=== PATIENT | male | born 1950 | race African-American/Black ===

== ENCOUNTER → 2024-05-17 16:06 | Outpatient (REF) | payer OTHER, SELFPAY | LOC: MRI 3T 16:06 | PROVIDERS: ATTENDING PHYSICIAN Specialist | DX: R97.20 Elevated prostate specific antigen [PSA] (principal) | CPT/HCPCS: 72197; A9575 ==

== ENCOUNTER → 2024-06-15 11:03 | Outpatient (REF) | payer OTHER, SELFPAY | LOC: HWRAD 11:03 | PROVIDERS: ATTENDING PHYSICIAN Specialist | DX: R31.0 Gross hematuria (principal) | CPT/HCPCS: 74176 ==

== ENCOUNTER → 2024-06-17 12:54 | Outpatient (REF) | payer OTHER, SELFPAY | LOC: HWRCS 12:54 | PROVIDERS: ATTENDING PHYSICIAN Internal Medicine Cardiovascular Disease | DX: I10 Essential (primary) hypertension (principal) | CPT/HCPCS: 93306 ==

== ENCOUNTER 2024-07-21 06:00 | Day surgery (SDC) | payer OTHER, SELFPAY ==
[2024-07-20 08:58] LABS: Hematocrit 39.7 % (39.0-52.0); Hemoglobin 13.4 g/dL (13.0-18.0); Mean Corp Hgb Conc. 33.8 g/dL (33.0-37.0); Mean Corpuscular Hgb 29.9 pg (27.0-31.0); Mean Corpuscular Volume 88.6 fL (80.0-94.0); Mean Platelet Volume 8.8 fL (7.4-10.4); Platelet Count 227 10^3/uL (130-400); Red Blood Cell Count 4.48 10^6/uL (4.70-6.10); Red Cell Dist. Width 13.2 % (11.5-14.5); White Blood Cell Count 3.5 10^3/uL (4.8-10.8)
[2024-07-20 09:39] LABS: Blood Urea Nitrogen 17 mg/dl (9-20); Carbon Dioxide 32 mmol/L (22-30); Chloride 103 mmol/L (98-107); Glucose 85 mg/dl (70-99); Potassium 4.3 mmol/L (3.5-5.1); Sodium 140 mmol/L (135-145); eGFR > 60.00
[2024-07-20 14:08] VITALS: BMI 24.7
[2024-07-21] VITALS (10 sets, daily range): BP systolic 136–155; BP diastolic 52–102; BMI 24.7
[2024-07-21] MEDS: NORMOSOL-R/PLASMALYTE-A 1000 IV (06:39)
[2024-07-21] MEDS: DILAUDID 0.5 MG IV (10:10)
--- NOTE | 2024-07-21 12:00 | PTCARENOTE ---
report received from pacu. aaox3. vss. [facility]bi infusing. output blood tinged. dtr at bedside. call montoya in reach. will monitor.
[2024-07-21] MEDS: MORPHINE SULFATE 4 MG IV (15:15)
[2024-07-21] MEDS: COLACE 100 MG PO (16:48)
[2024-07-21] MEDS: TORADOL 15 MG IV ×2 (17:58→23:31)
[2024-07-21] MEDS: NORVASC 5 MG PO (21:31)
[2024-07-21] MEDS: POLYSPORIN/DOUBLE ANTIBIOTIC 1 APPLIC TOPICAL (21:31)
[2024-07-21] MEDS: FLOMAX 0.4 MG PO (21:31)
[2024-07-22 03:00] VITALS: BP 138/87
[2024-07-22] MEDS: TORADOL 15 MG IV ×3 (05:40→16:27)
[2024-07-22] MEDS: COLACE 100 MG PO ×3 (06:09→16:27)
[2024-07-22 07:45] VITALS: BP 119/77
[2024-07-22] MEDS: POLYSPORIN/DOUBLE ANTIBIOTIC 1 APPLIC TOPICAL (07:51)
--- NOTE | 2024-07-22 09:47 | CM ---
Reviewed the chart notes and spoke with the patient at the bedside. CM consult received for VN. Discussed VN agencies in the area. Patient selected VN, referral sent in [facility]. Patient resides with his daughter in a second floor apartment
with a flight of steps to enter. The patient reports no DME/VN/SNF in the past. The patient confirmed his pharmacy of choice is the [facility]. CM continues to be available to patient/family and is monitoring medical plan for
needs at discharge.
Plan: Discharge to home with VN services.
--- NOTE | 2024-07-22 10:53 | W.PN.URO.CBU ---
Today's Communication / Plan
-
discharge
Assessment / Plan
-
stable
Diagnosis
-
Date of Service: July 22, 2024
-
Patient Diagnosis: BPH/LEMUS Umbilical hernia
s/p robotic partial prostatectomy and umbilical hernia repair
Post Op Day: 1
Subjective
-
expected abd-pelvic ache
Objective
-
Vital Signs
Temp Pulse Resp BP Pulse Ox
98.3 F 92 16 119/77 98
07/22/24 07:45 07/22/24 07:45 07/22/24 07:45 07/22/24 07:45 07/22/24 07:45
Intake and Output
07/21/24 07/22/24 07/23/24
06:59 06:59 06:59
Intake Total 1520 / 1520 560 / 560
Output Total 1610 / 1610
Balance -90 / -90 560 / 560
Intake:
Oral fluids 1320 / 1320 560 / 560
IV fluids (Total) 200 / 200
Normosol 200 / 200
Output:
Urine, Zhang 60 / 60
True Urine Output from [facility] 1550 / 1550
Laboratory Results
07/20/24 08:06
07/20/24 08:06
Physical Exam
-
General - well developed, well nourished, no acute distress
Chest - clear bilaterally
Abdomen - soft, non-tender, positive bowel sounds, no CVAT, no incisional pain or distention
Genitalia -Zhang to leg bag with pink urine
Neuro - AOx3, no motor deficits
Extremities - no clubbing, no cyanosis, no edema
Dressings - clean, dry, intact
[2024-07-22 11:29] VITALS: BP 122/84
--- NOTE | 2024-07-22 11:53 | VNURNOTE ---
[facility] liaison attempted to meet with patient to explain [facility] services. He was sound asleep. Referral accepted in [facility].
--- NOTE | 2024-07-22 14:23 | VNURNOTE ---
Home Health Liaison spoke with patient to discuss [facility] nurse/therapy, visits, schedule and homebound status. Patient is agreeable and understands that visits at home will be 2-3 x per week to assess and teach medical and mckeon management. Patient
is aware that [facility] will contact them for start of care in 1-2 days after discharge from . [facility] referral accepted in [facility].
[2024-07-22 15:16] VITALS: BP 139/78
[2024-07-22 19:00] VITALS: BP 138/95
== END 2024-07-22 19:40 | disposition home or self-care (01) ==
LOC: SDS 06:00
PROVIDERS: ATTENDING PHYSICIAN Specialist
DX: N40.1 Benign prostatic hyperplasia with lower urinary tract symptoms (principal); R33.8 Other retention of urine; K40.90 Unilateral inguinal hernia, without obstruction or gangrene, not specified as recurrent
CPT/HCPCS: 49650; 55867; 88307; 36415; 80048; 85027; 86850; 86900; 86901; 87086